=== PATIENT | male | born 1990 | race Caucasian/White ===

== ENCOUNTER 2016-04-06 16:45 | Emergency (ER) | payer MEDICAID ==
[~2016-04-06] VITALS: Wt 75.0 kg
[2016-04-06] MEDS ORDERED: FLUT9.9S NASAL (18:18)
[2016-04-06] MEDS ORDERED: BEN50 PO (18:18)
[2016-04-06] MEDS ORDERED: CETI10CA PO (18:18)
--- NOTE | 2016-04-06 18:23 | ERD ---
ER Documentation Chief Complaint Date/Time DATE: 04/06/16 TIME: 18:20 Chief Complaint onset of rash and sneezing and runny nose for the past few hours. HPI 26 year old male presents here in the ER for complaints of sneezing, runny nose , nasal congestion and rash all over the body started today. Patient walked into the room, he was very liu, started to have sneezing runny nose, nasal congestion, with clear nasal discharge. Patient does not have any fever or chills. Patient took some Benadryl which helped with symptoms. Relief. Her rash has not improved. Patient does not have any shortness of breath, lip swelling, tongue swelling. Patient does not have any shortness of breath. This patient denies any wheezing. Patient denies any family members with the same type of symptoms. ROS All systems reviewed and are negative except as per history of present illness. Medications Home Meds Active Scripts Diphenhydramine Hcl* (Benadryl*) 50 Mg Cap, 50 MG PO Q6H Y for ITCHING/RASH, # 30 CAP Prov:FLAQUITO INMAN NP 04/06/16 Cetirizine Hcl* (Zyrtec*) 10 Mg Capsule, 10 MG PO DAILY, #30 TAB.CHEW Prov:FLAQUITO INMAN NP 04/06/16 Fluticasone Propionate (Flonase Allergy Relief) 9.9 Ml [place].susp, 2 SPRAY NASAL DAILY, #1 BOTTLE TO EACH NOSTRIL Prov:FLAQUITO INMAN NP 04/06/16 Allergies Allergies: Coded Allergies: No Known Allergy (Unverified , 04/06/16) PMhx/Soc Medical and Surgical Hx: pt denies Medical Hx, pt denies Surgical Hx FmHx Family History: No coronary disease, No diabetes, No other Physical Exam Vitals Vital Signs Date Time Temp Pulse Resp B/P Pulse Ox O2 Delivery O2 Flow Rate FiO2 04/06/16 16:58 98.2 67 20 129/63 99 Physical Exam GENERAL: The patient is well developed and appropriate for usual state of health, in no apparent distress. HEENT: Atraumatic. Ears: Normal tympanic membrane, no erythema or bulging. No ear canal swelling. No ear discharge. Nose: Pale boggy naris with clear nasal discharge. Throat: oropharynx clear. No tonsillar swelling or tonsillar exudates. No lymphadenopathy. CHEST: Clear to auscultation bilaterally. There are no rales, wheezes or rhonchi. HEART: Regular rate and rhythm. No murmurs, clicks, rubs or gallops. No S3 or S4. ABDOMEN: Soft, nontender and nondistended. Good bowel sounds. No rebound or guarding. No gross peritonitis. No gross organomegaly or masses. No Fontaine sign or McBurney point tenderness. BACK: No midline or flank tenderness. EXTREMITIES: Equal pulses bilaterally. There is no peripheral clubbing, cyanosis or edema. No focal swelling or erythema. Full range of motion. Grossly neurovascularly intact. NEURO: Alert and oriented. Cranial nerves 2-12 intact. Motor strength in all 4 extremities with 5/5 strength. Sensation grossly intact. Normal speech and gait. SKIN: There is no apparent rash or petechia. The skin is warm and dry. HEMATOLOGIC AND LYMPHATIC: There is no evidence of excessive bruising or lymphedema. No gross cervical, axillary, or inguinal lymphadenopathy. Procedures/MDM Medical decision making: Patient's sneezing, runny nose and nasal congestion most likely consistent with possible seasonal allergy, patient's rash has improved and resolved. Nonspecific at this time, possibly urticaria. Patient's rash has been resolved after taking Benadryl. No symptoms of any contagious rash at this time. No symptoms of acute bacterial rhinosinusitis. No symptoms of any sepsis at this time. Patient appears well and is hemodynamically stable. Patient was given for Flonase, Benadryl, Zyrtec, to follow with primary doctor in 2-3 days, avoid common allergens, patient was advised to return to emergency department for any worsening symptoms. Departure Diagnosis: Primary Impression: Seasonal allergies Allergic rhinitis trigger: unspecified Qualified Code: J30.2 - Seasonal allergic rhinitis, unspecified allergic rhinitis trigger Additional Impression: Rash Condition: Stable Patient Instructions: Self-Care for Skin Rashes, Seasonal Allergy FLAQUITO INMAN NP Apr 06, 2016 18:23
== END 2016-04-06 18:20 | disposition home or self-care (01) ==
LOC: E/R 16:45
DX: J30.2 Other seasonal allergic rhinitis (principal)
CPT/HCPCS: 99283

== ENCOUNTER 2016-07-24 18:29 | Emergency (ER) | payer OTHER, MEDICAID ==
[~2016-07-24] VITALS: Ht 175.3 cm; Wt 75.5 kg
[~2016-07-24 18:29] MED LIST: BEN50 PO; CETI10CA PO; FLUT9.9S NASAL
[2016-07-24 18:35] VITALS: Ht 175.3 cm; Wt 75.5 kg
[2016-07-24] MEDS ORDERED: HYDROCODONE/APAP (5/325) TAB PO ONE (20:30)
--- NOTE | 2016-07-24 20:34 | ERD ---
ER Documentation Chief Complaint Date/Time DATE: 07/24/16 TIME: 20:27 Chief Complaint right leg/knee pain x1 week, injured from playing basketball. HPI 26-year-old male presents with chief complaint of right knee pain 1 week post basketball related injury. Patient states that he was hit in the knee by another player in a since developed pain over his right knee, which is exacerbated by bearing weight on it. He has been limping and pain is progressively getting worse. He reports taking 3-4 pills of ibuprofen at a time with only mild relief. He notes associated bruising and mild swelling. He denies numbness, tingling, and loss in range of motion. He currently rates his pain a 8 out of 10 in severity, only while walking. ROS All systems reviewed and are negative except as per history of present illness. Medications Home Meds Active Scripts Diphenhydramine Hcl* (Benadryl*) 50 Mg Cap, 50 MG PO Q6H Y for ITCHING/RASH, # 30 CAP Prov:FLAQUITO INMAN NP 04/06/16 Cetirizine Hcl* (Zyrtec*) 10 Mg Capsule, 10 MG PO DAILY, #30 TAB.CHEW Prov:FLAQUITO INMAN NP 04/06/16 Fluticasone Propionate (Flonase Allergy Relief) 9.9 Ml [place].susp, 2 SPRAY NASAL DAILY, #1 BOTTLE TO EACH NOSTRIL Prov:FLAQUITO INMAN NP 04/06/16 Allergies Allergies: Coded Allergies: No Known Allergy (Unverified , 07/24/16) PMhx/Soc Medical and Surgical Hx: pt denies Medical Hx, pt denies Surgical Hx History of Surgery: No Anesthesia Reaction: No Hx Neurological Disorder: No Hx Respiratory Disorders: No Hx Cardiac Disorders: No Hx Psychiatric Problems: No Hx Miscellaneous Medical Probl: No Hx Alcohol Use: No Hx Substance Use: No Hx Tobacco Use: No Smoking Status: Never smoker Physical Exam Vitals Vital Signs Date Time Temp Pulse Resp B/P Pulse Ox O2 Delivery O2 Flow Rate FiO2 07/24/16 18:35 97.6 78 20 157/89 99 Physical Exam GENERAL: Non-toxic. No apparent signs of distress. HEENT: Atraumatic. Normal conjunctiva, no injection. No eyelid or lower eyelid swelling noted. Nose: no nasal discharge. LUNGS: Clear to auscultation. No accessory muscle use. No wheezing, no crackles. No signs or symptoms of respiratory distress. HEART: Regular rate and rhythm. No murmurs, clicks, rubs or gallops. BACK: No midline tenderness, no costovertebral tenderness. EXTREMITIES: No peripheral cyanosis or edema. Full range of motion, pain with knee extension on the right side. mild tenderness palpation over right MCL. Negative anterior and posterior drawer sign. 2+ distal pulses. Good capillary refill. NEURO: The patient moves all 4 extremities with 5/5 strength. Cranial nerves are grossly intact. Normal mental status for age. Good muscle tone. SKIN: Mild ecchymosis over anterior right knee. No associated edema. There is no apparent rash, petechiae. Good skin turgor. Results 24 hrs Current Medications Medications (Trade) Dose Ordered Sig/Darleen Route PRN Reason Start Time Stop Time Status Last Admin Dose Admin Acetaminophen/ Hydrocodone Bitart ([place] (5/325)) 1 tab ONCE ONCE PO 07/24/16 20:30 07/24/16 20:31 DC 07/24/16 20:57 [place] [id number] Radiology Main Line: [phone] DIAGNOSTIC IMAGING REPORT Patient: MARGA HERRERA : 1990 Age: 26 Sex: M MR #: [id number] DOS: 07/24/162019 Ordering MD: Darline Miner PA-C Location: [facility] Room/Bed: PROCEDURE: Right knee x-ray CLINICAL INDICATION: sports injury TECHNIQUE: AP, lateral and oblique views of the knee were obtained. COMPARISON: None FINDINGS: There is normal mineralization. No acute fracture or dislocation is seen. There is a small suprapatellar joint effusion. There are no significant degenerative changes. There is no significant soft tissue swelling. IMPRESSION: Small suprapatellar joint effusion. Otherwise, no significant abnormalities are identified. RPTAT:AAJJ Mike Bustillo, Physician Date Time Electronically viewed and signed by Mike Bustillo Physician on 07/24/2016 21: 38 [facility]/ CC: Darline Miner PA-C Procedures/MDM Patient presented post basketball injury that occurred 1 week ago, has had increasingly worse pain in his right knee. On examination his mild ecchymosis over the anterior right knee and tenderness palpation of the MCL. However he has full range of motion with pain with extension. Distal pulses are intact. He denies any numbness or tingling. He has been taking ibuprofen with mild relief, and icing the area. He notes that earlier there was mild swelling which has since subsided. I explained to the patient that I would be ordering an x-ray to rule out fracture or dislocation, however due to mechanism of injury during physical exam findings symptoms are most likely due to a knee sprain and or though follow-up is advised. Awaiting x-ray results prior to further management. Right knee x-ray (interpretation by radiologist): IMPRESSION: Small suprapatellar joint effusion. Otherwise, no significant abnormalities are identified. X-ray showed no signs of dislocation or fracture, explained to patient that pain in knees likely due to sprain versus strain. Small suprapatellar joint effusion is likely related to recent injury, it is not significant enough to warrant arthrocentesis. I suggested RICE instructions, I prescribed ibuprofen 600 mg for relief of pain. Patient was placed in a knee immobilizer and given crutches. Advised to follow-up with Ortho. Copy of x-ray results provided to the patient. At this time a low suspicion for neurovascular compress, dislocation, fracture, septic joint, cellulitis, gout, and compartment syndrome. Patient stable for discharge and outpatient management. Advised to follow-up with PCP in 1-2 days for the referral. Departure Diagnosis: Primary Impression: Right knee pain Chronicity: acute Qualified Code: M25.561 - Acute pain of right knee Additional Impressions: Knee effusion, right Sprain of right knee Condition: Good Darline Miner PA-C July 24, 2016 20:34
--- NOTE | 2016-07-24 21:39 | RADRPT ---
PROCEDURE: Right knee x-ray CLINICAL INDICATION: sports injury TECHNIQUE: AP, lateral and oblique views of the knee were obtained. COMPARISON: None FINDINGS: There is normal mineralization. No acute fracture or dislocation is seen. There is a small suprapatellar joint effusion. There are no significant degenerative changes. There is no significant soft tissue swelling. IMPRESSION: Small suprapatellar joint effusion. Otherwise, no significant abnormalities are identified. RPTAT:AAJJ Physician Jessica Date Time Electronically viewed and signed by Physician Jessica on 07/24/2016 21:38 EDIE/
[2016-07-24] MEDS ORDERED: HYDR-906 PO (21:48)
[2016-07-24] MEDS ORDERED: IBUP-1542 PO (21:48)
[2016-07-24 22:03] VITALS: BP 128/75; PULSE 72; RESP 20; TEMP 98.2
== END 2016-07-24 22:04 | disposition home or self-care (01) ==
LOC: FTE 18:29
DX: S83.91XA Sprain of unspecified site of right knee, initial encounter (principal); M25.461 Effusion, right knee; W50.0XXA Accidental hit or strike by another person, initial encounter; Y92.9 Unspecified place or not applicable
CPT/HCPCS: 73562

== ENCOUNTER 2016-07-26 19:24 | Emergency (ER) | payer MEDICAID, OTHER ==
[~2016-07-26] VITALS: Ht 175.3 cm; Wt 75.5 kg
[~2016-07-26 19:24] MED LIST changes: +HYDR-906 PO; +IBUP-1542 PO
[2016-07-26 19:54] VITALS: Ht 175.3 cm; Wt 75.5 kg
[2016-07-26] MEDS ORDERED: OXYC-279 PO (20:19)
--- NOTE | 2016-07-26 20:25 | ERD ---
ER Documentation Chief Complaint Date/Time DATE: 07/26/16 TIME: 20:22 Chief Complaint right leg pain x 1 week, was here 2 days ago for same HPI 26 year-old male presents to emergency department for complaints of right knee pain left upper thigh pain for one week now, patient got hit on the right thigh area while playing basketball, and the right knee area, was bruising, complaining of pain on affected area throbbing pain, 8/10 scale, is worse upon movement. Patient was seen in the emergency department 2 days ago, had radiographs done and the right knee, patient continues of the pain, tooth [place] for the pain as prescribed with only mild relief. Patient denies any new injury. Patient denies any numbness or tingling. Patient denies any worsening redness or swelling. Unable to get an appointment with primary care doctor for 1 month ROS All systems reviewed and are negative except as per history of present illness. Medications Home Meds Active Scripts Oxycodone HCl/Acetaminophen (Percocet 5-325 mg Tablet) 1 Each Tablet, 1 EACH PO Q6, #20 TAB Prov:FLAQUITO INMAN NP 07/26/16 Hydrocodone/Acetaminophen ([place] 5-325 Tablet) 1 Each Tablet, 1 TAB PO Q6H Y for PAIN, #7 TAB Prov:Darline Miner PA-C 07/24/16 Ibuprofen* (Motrin*) 600 Mg Tab, 600 MG PO Q6, #30 TAB Prov:Darline Miner PA-C 07/24/16 Diphenhydramine Hcl* (Benadryl*) 50 Mg Cap, 50 MG PO Q6H Y for ITCHING/RASH, # 30 CAP Prov:FLAQUITO INMAN NP 04/06/16 Cetirizine Hcl* (Zyrtec*) 10 Mg Capsule, 10 MG PO DAILY, #30 TAB.CHEW Prov:FLAQUITO INMAN NP 04/06/16 Fluticasone Propionate (Flonase Allergy Relief) 9.9 Ml [place].susp, 2 SPRAY NASAL DAILY, #1 BOTTLE TO EACH NOSTRIL Prov:FLAQUITO INMAN NP 04/06/16 Allergies Allergies: Coded Allergies: No Known Allergy (Unverified , 07/26/16) PMhx/Soc Medical and Surgical Hx: pt denies Medical Hx, pt denies Surgical Hx History of Surgery: No Anesthesia Reaction: No Hx Neurological Disorder: No Hx Respiratory Disorders: No Hx Cardiac Disorders: No Hx Psychiatric Problems: No Hx Miscellaneous Medical Probl: No Hx Alcohol Use: No Hx Substance Use: No Hx Tobacco Use: No FmHx Family History: No coronary disease, No diabetes, No other Physical Exam Vitals Vital Signs Date Time Temp Pulse Resp B/P Pulse Ox O2 Delivery O2 Flow Rate FiO2 07/26/16 19:54 98.2 93 20 131/77 99 Physical Exam GENERAL: The patient is well developed and appropriate for usual state of health, in no apparent distress. CHEST: Clear to auscultation bilaterally. There are no rales, wheezes or rhonchi. HEART: Regular rate and rhythm. No murmurs, clicks, rubs or gallops. No S3 or S4. ABDOMEN: Soft, nontender and nondistended. Good bowel sounds. No rebound or guarding. No gross peritonitis. No gross organomegaly or masses. No Fontaine sign or McBurney point tenderness. BACK: No midline or flank tenderness. EXTREMITIES: Mild swelling on the patellar aspect of the right knee, to do full range of motion without any restriction, noted some ecchymosis noted on the right upper thigh, no erythema noted, no symptoms of compartment syndrome, and circulation of the affected area. Equal pulses bilaterally. Full range of motion of other joints of the body. Grossly neurovascularly intact. NEURO: Alert and oriented. Cranial nerves 2-12 intact. Motor strength in all 4 extremities with 5/5 strength. Sensation grossly intact. Normal speech and gait. SKIN: There is no apparent rash or petechia. The skin is warm and dry. HEMATOLOGIC AND LYMPHATIC: There is no evidence of excessive bruising or lymphedema. No gross cervical, axillary, or inguinal lymphadenopathy. Procedures/MDM Medical Decision Making: Patient's pain is most likely consistent with a right thigh contusion, right knee joint effusion is seen in the x-ray, and possible ligament injury, outpatient MRI is recommended for further evaluation. There is no suspicion for neurovascular compromise. Patient has intact sensation and circulation of the affected extremity. There is low suspicion for septic arthritis. No suspicion for compartment syndrome, DVT. Patient does not have any fever. Radiology exams done 2 days ago of the affected area does not show any fracture or dislocation. Disposition: Home. Patient is given prescription Percocet for severe pain, continue ibuprofen. Patient was advised to elevate the affected area and apply ice on affected area. Patient was advised that if symptoms are worse, numbness , tingling, high fever, unable to move joint, worsening symptoms, to return to emergency department immediately. Otherwise, patient is advised to follow up with the primary care doctor in 5-7 days for reevaluation of symptoms. See primary care doctor for outpatient MRI. Departure Diagnosis: Primary Impression: Right thigh pain Additional Impression: Right knee pain Chronicity: acute Qualified Code: M25.561 - Acute pain of right knee Condition: Stable Patient Instructions: Hip Strain, Knee Effusion FLAQUITO INMAN NP July 26, 2016 20:25
== END 2016-07-26 20:22 | disposition home or self-care (01) ==
LOC: E/R 19:24
DX: M79.651 Pain in right thigh (principal); M25.561 Pain in right knee
CPT/HCPCS: 99283

== ENCOUNTER 2016-09-25 12:33 | Emergency (ER) | payer OTHER ==
[~2016-09-25] VITALS: Ht 175.3 cm; Wt 72.0 kg
[~2016-09-25 12:33] MED LIST changes: +OXYC-279 PO
[2016-09-25 12:43] VITALS: Ht 175.3 cm; Wt 72.0 kg
[2016-09-25] MEDS ORDERED: LORAZEPAM 0.5 MG TAB PO ONE (15:00)
--- NOTE | 2016-09-25 15:17 | RADRPT ---
PROCEDURE: XR Chest. CLINICAL INDICATION: chest pain, shortness of breath TECHNIQUE: Single frontal view of the chest was obtained COMPARISON: None FINDINGS: The heart and mediastinum are within normal limits. The lungs are clear. There is no pleural effusion or pneumothorax. RPTAT: AA IMPRESSION: No acute disease. .Obi Galeana MD, MD Date Time Electronically viewed and signed by .Obi Galeana MD, on 09/25/2016 15:16 .S/
[2016-09-25] MEDS ORDERED: LORA-441 PO (15:22)
--- NOTE | 2016-09-25 15:26 | ERD ---
ER Documentation Chief Complaint Date/Time DATE: 09/25/16 TIME: 15:23 Chief Complaint FEELS LIKE HE HAS ANXIETY. STRESSED RIGHT NOW HPI This 18-year-old male presents with sensation of difficulty taking a deep breath over the last few days. 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 Denies recent illnesses, cough, hemoptysis, fatigue, chest pain, fevers. Is wondering if this is also stress related as he is under recent stress. ROS All systems reviewed and are negative except as per history of present illness. Medications Home Meds Active Scripts Lorazepam* (Ativan*) 0.5 Mg Tablet, 0.5 MG PO Q8, #12 TAB Prov:JOSE ELIAS GAONA MD 09/25/16 Oxycodone HCl/Acetaminophen (Percocet 5-325 mg Tablet) 1 Each Tablet, 1 EACH PO Q6, #20 TAB Prov:FLAQUITO INMAN NP 07/26/16 Hydrocodone/Acetaminophen ([place] 5-325 Tablet) 1 Each Tablet, 1 TAB PO Q6H Y for PAIN, #7 TAB Prov:Darline Miner PA-C 07/24/16 Ibuprofen* (Motrin*) 600 Mg Tab, 600 MG PO Q6, #30 TAB Prov:Darline Miner PA-C 07/24/16 Diphenhydramine Hcl* (Benadryl*) 50 Mg Cap, 50 MG PO Q6H Y for ITCHING/RASH, # 30 CAP Prov:FLAQUITO INMAN NP 04/06/16 Cetirizine Hcl* (Zyrtec*) 10 Mg Capsule, 10 MG PO DAILY, #30 TAB.CHEW Prov:FLAQUITO INMAN NP 04/06/16 Fluticasone Propionate (Flonase Allergy Relief) 9.9 Ml [place].susp, 2 SPRAY NASAL DAILY, #1 BOTTLE TO EACH NOSTRIL Prov:FLAQUITO INMAN NP 04/06/16 Allergies Allergies: Coded Allergies: No Known Allergy (Unverified , 09/25/16) PMhx/Soc History of Surgery: No Anesthesia Reaction: No Hx Neurological Disorder: No Hx Respiratory Disorders: No Hx Cardiac Disorders: No Hx Psychiatric Problems: Yes (Anxiety) Hx Miscellaneous Medical Probl: No Hx Alcohol Use: Yes (social) Hx Substance Use: No Hx Tobacco Use: Yes Smoking Status: Current some day smoker Physical Exam Vitals Vital Signs Date Time Temp Pulse Resp B/P Pulse Ox O2 Delivery O2 Flow Rate FiO2 09/25/16 12:43 97.5 76 18 141/82 99 Physical Exam Const: [] Alert, [id number] per Head: Atraumatic Eyes: Normal Conjunctiva. No pallor of the lids. ENT: Normal External Ears, Nose and Mouth. Neck: Full range of motion..~ No meningismus. Resp: Clear to auscultation bilaterally Cardio: Regular rate and rhythm, no murmurs Abd: Soft, non tender, non distended. Normal bowel sounds Skin: No petechiae or rashes Back: No midline or flank tenderness Ext: No cyanosis, or edema Neur: Awake and alert Psych: Normal Mood and Affect Results 24 hrs Current Medications Medications (Trade) Dose Ordered Sig/Darleen Route PRN Reason Start Time Stop Time Status Last Admin Dose Admin Lorazepam (Ativan) 0.5 mg ONCE ONCE PO 09/25/16 15:00 09/25/16 15:01 DC 09/25/16 14:48 Procedures/MDM Chest X-ray 1V Interpreted by me: Soft Tissue: No acute abnormalities Bones: No acute abnormalities Mediastinum/Cardiac Silhouette/Lungs: [No acute abnormalities]. Impression- normal 1 view chest x-ray EKG: Rate/Rhythm: [Normal Sinus Rhythm] rate equals 63 QRS, ST, T-waves: [No changes consistent w/ acute ischemia] Impression: [No evidence of ischemia or arrhythmia] Patient is given Ativan 0.5 mg by mouth. Patient stable throughout ED course. Patient presents with sensation of air hunger without signs or symptoms to suggest anemia, pulmonary embolism, acute coronary syndrome, hypoxemia, respiratory distress. He may have an anxiety component to his complaints. Patient is advised to follow-up with primary doctor for physical and further evaluation. He was given a short course or trial of Ativan and is advised to recheck as directed or for new or worsening symptoms. Departure Diagnosis: Primary Impression: Shortness of breath Condition: Stable Patient Instructions: Coping with Shortness of Breath: Controlling Stress Additional Instructions: Examinations normal today. Recheck for fevers, blood, new or worsening symptoms. We will treat for stress and anxiety as potential cause. Follow-up with primary doctor for physical or further evaluation JOSE ELIAS GAONA MD Sep 25, 2016 15:26
== END 2016-09-25 16:04 | disposition home or self-care (01) ==
LOC: FTE 12:33
DX: R06.02 Shortness of breath (principal); F17.210 Nicotine dependence, cigarettes, uncomplicated
CPT/HCPCS: 71010; 93005